=== PATIENT | male | born 1960 | race Caucasian/White ===

== ENCOUNTER 2019-03-19 15:43 | Emergency (ER) | payer OTHER, MEDICAID ==
[~2019-03-19] VITALS: Ht 182.9 cm; Wt 86.2 kg
--- NOTE | 2019-03-19 15:44 | NUR ---
Patient BIB [facility] for pre-booking medical screening exam, transferred to chair C via wheelchair. RN evaluating patient.
[2019-03-19 15:51] VITALS: BP 150/86
--- NOTE | 2019-03-19 15:59 | NUR ---
58 Y/O MALE BIB PD D/T [place] TODAY. A & O X4. LUNG SOUNDS CLEAR. NO RESP DISTRESS NOTED. NO DISTRESS NOTED. NKA. PMH: HTN, DM AKA ON RIGHT LEG, PT HAS PROSETHETIC ON RIGHT LEG.
[2019-03-19 16:14] VITALS: BP 150/86
--- NOTE | 2019-03-19 16:14 | NUR ---
PATIENT UPPER [facility] POLICE DEPT. PATIENT EXAMINED BY DR. SALINAS. PATIENT MEDICALLY CLEARED AND RELEASED IN CUSTODY IN STABLE CONDITION. ORIGINAL PRE-BOOK FORM GIVEN TO OFFICER CORRINE 0249.
== END 2019-03-19 16:14 ==
LOC: MED 15:43
DX: Z02.89 Encounter for other administrative examinations (principal); E11.9 Type 2 diabetes mellitus without complications; I10 Essential (primary) hypertension; Z89.611 Acquired absence of right leg above knee
CPT/HCPCS: 82948; 99283